=== PATIENT | female | born 1945 | race Caucasian/White ===

== ENCOUNTER 2018-02-03 08:53 | Day surgery (SDC) | payer MEDICARE ==
[2018-02-02 12:33] LABS: BASOPHILS % (AUTO) 0.4 % (0-1); EOSINOPHILS # (AUTO) 0.1 X10'3 (0-0.9); EOSINOPHILS % (AUTO) 1.4 % (0-6); LYMPHOCYTES % (AUTO) 24.6 % (21-51); MEAN CORPUSCULAR HEMOGLOBIN 32.4 PG (27.0-31.0); MEAN CORPUSCULAR HGB CONC 34.2 % (33.0-36.5); MEAN CORPUSCULAR VOLUME 94.8 FL (78-98); MEAN PLATELET VOLUME 9.7 FL (7.4-10.4); MONOCYTES # (AUTO) 0.6 X10'3 (0-0.9); MONOCYTES % (AUTO) 6.9 % (2-12); NEUTROPHILS # (AUTO) 5.4 X10'3 (1.8-7.7); NEUTROPHILS % (AUTO) 66.7 % (42-75); PLATELET COUNT 156 X10'3 (140-440); RED BLOOD COUNT 4.32 X10'6 (4.20-5.60); RED CELL DISTRIBUTION WIDTH 13.6 % (11.5-14.5); WHITE BLOOD COUNT 8.1 X10'3 (4.5-11.0)
[2018-02-02 12:43] LABS: PARTIAL THROMBOPLASTIN TIME 25 SECONDS (22-32)
[2018-02-02 12:44] LABS: ALBUMIN 3.9 G/DL (3.4-5.0); ANION GAP 11 (8-16); BLOOD UREA NITROGEN 20 MG/DL (7-18); BUN/CREATININE RATIO 23.5 (6.6-38.0); CALCIUM 9.3 MG/DL (8.5-10.1); CHLORIDE 104 MMOL/L (99-107); CREATININE 0.85 MG/DL (0.40-0.90); GLUCOSE 106 MG/DL (70-104); SODIUM 140 MMOL/L (135-145); TOTAL CARBON DIOXIDE 25.2 MMOL/L (24-32); eGFR 66 ML/MIN
[2018-02-03] VITALS (12 sets, daily range): BP systolic 92–148; BP diastolic 55–87
[~2018-02-03] VITALS: Ht 157.5 cm; Wt 61.7 kg
[2018-02-03] MEDS ORDERED: normal saline 1000ml 1,000 ML IV SCH (09:25)
[2018-02-03] MEDS ORDERED: diphenhydrAMINE 25mg capsule PO PRN (09:25)
[2018-02-03] MEDS ORDERED: LORazepam 0.5 MG tablet PO PRN (09:25)
[2018-02-03] MEDS ORDERED: METO25TA6 PO (09:47)
[2018-02-03] MEDS ORDERED: AMLO2.5T2 PO (09:47)
[2018-02-03] MEDS ORDERED: METO50TA17 PO (09:47)
[2018-02-03] MEDS ORDERED: FLAX10007 PO (09:47)
[2018-02-03] MEDS ORDERED: LISI-600 PO (09:47)
[2018-02-03] MEDS ORDERED: MAGN500C16 PO (09:47)
[2018-02-03] MEDS ORDERED: LIDOcaine/PRILOcaine 5gm cream TP ONE ×2 (11:55→11:59)
[2018-02-03] MEDS ORDERED: heparin 1,000unit/ml 10ml vial 10 ML ONE (12:09)
[2018-02-03] MEDS ORDERED: iohexol 350 MG/ML 50ML vial IV ONE (12:09)
[2018-02-03] MEDS ORDERED: midazolam 2 mg/2 ml injection ONE (12:09)
[2018-02-03] MEDS ORDERED: nitroGLYCERIN-Tridil 50MG/D5W 250 ML IV ONE (12:09)
[2018-02-03] MEDS ORDERED: verapamil 2.5 mg/ml inj IV ONE (12:09)
[2018-02-03] MEDS ORDERED: iohexol 350MG/ML 100ml bottle IV ONE (12:09)
[2018-02-03] MEDS ORDERED: LIDOcaine 1% 30ml preserv. free vial ONE (12:09)
[2018-02-03] MEDS ORDERED: fentaNYL/PF 50MCG/1 ML 2ML syringe ONE (12:09)
[2018-02-03] MEDS ORDERED: atropine 0.1mg/ml 10ml syringe ONE (13:19)
[2018-02-03] MEDS ORDERED: ibuprofen tablet 400 MG TABLET PO ONE (16:20)
[2018-02-03 17:41] LABS: ISTAT HGB ART 11.6 g/dl (12.0-16.0); ISTAT Hct ART 34 %PCV (35-48); ISTAT O2 SATURATION ARTERIAL 94 % (95-98); ISTAT SOURCE ART
[2018-02-04 05:16] LABS: ISTAT Hct MIX 34 %PCV (35-48); ISTAT O2 SATURATION MIX VENOUS 69 % (60-80); ISTAT SOURCE MIX
== END 2018-02-03 19:30 | disposition home or self-care (01) ==
LOC: SSTAY O 08:53
PROVIDERS: ATTEND Internal Medicine Cardiovascular Disease
DX: I25.118 Atherosclerotic heart disease of native coronary artery with other forms of angina pectoris (principal); I35.0 Nonrheumatic aortic (valve) stenosis; I47.1 Supraventricular tachycardia; I10 Essential (primary) hypertension; M81.0 Age-related osteoporosis without current pathological fracture; I34.1 Nonrheumatic mitral (valve) prolapse; I48.91 Unspecified atrial fibrillation; Z87.891 Personal history of nicotine dependence; Z95.5 Presence of coronary angioplasty implant and graft; Z72.89 Other problems related to lifestyle; Z90.710 Acquired absence of both cervix and uterus; Z95.1 Presence of aortocoronary bypass graft; Z79.01 Long term (current) use of anticoagulants; Z79.82 Long term (current) use of aspirin; Z90.49 Acquired absence of other specified parts of digestive tract; Z90.89 Acquired absence of other organs; Z79.899 Other long term (current) drug therapy; Z98.890 Other specified postprocedural states; Z82.49 Family history of ischemic heart disease and other diseases of the circulatory system; Z84.1 Family history of disorders of kidney and ureter; Z83.3 Family history of diabetes mellitus
CPT/HCPCS: 36415; 80048; 82803; 85014; 85025; 85610; 85730; 93005; 93460; 93567; 99152; 99153; A6257; A6258; A6402; A6449; C1769; J1644; J2250; J3010; J3490; J7030; Q0163; Q9967; A4620; J0461

== ENCOUNTER 2019-04-14 13:29 | Emergency (ER) | payer MEDICARE ==
[~2019-04-14] VITALS: Ht 157.5 cm; Wt 62.3 kg
[~2019-04-14 13:29] MED LIST: AMLO2.5T2 PO; FLAX10007 PO; LISI-600 PO; MAGN500C16 PO; METO25TA6 PO; METO50TA17 PO
[2019-04-14 14:46] VITALS: BP 156/82
== END 2019-04-14 15:44 | disposition home or self-care (01) ==
LOC: ER 13:30
DX: I10 Essential (primary) hypertension (principal); Z79.899 Other long term (current) drug therapy; Z98.890 Other specified postprocedural states
CPT/HCPCS: 93005; 99283

== ENCOUNTER 2021-06-07 23:18 | Emergency (ER) | payer MEDICARE ==
[~2021-06-07] VITALS: Ht 165.1 cm; Wt 70.5 kg
[~2021-06-07 23:18] MED LIST changes: +AMIO200T67 PO; -AMLO2.5T2 PO; +APIX5TAB3 PO; +CHOL100025 PO; +LEVO25TA7 PO; -LISI-600 PO; -METO25TA6 PO; -METO50TA17 PO; +ZINC50TA60 PO
[2021-06-07 23:49] VITALS: BP 200/83
[2021-06-08 00:05] LABS: BASOPHILS % (AUTO) 0.6 % (0-1); EOSINOPHILS # (AUTO) 0.2 X10'3 (0-0.9); EOSINOPHILS % (AUTO) 2.1 % (0-6); HEMATOCRIT 41.2 % (35.0-45.0); HEMOGLOBIN 14.3 g/dl (12.0-16.0); LYMPHOCYTES # (AUTO) 2.8 X10'3 (1.1-4.8); LYMPHOCYTES % (AUTO) 35.1 % (21-51); MEAN CORPUSCULAR HEMOGLOBIN 31.8 PG (27.0-31.0); MEAN CORPUSCULAR HGB CONC 34.7 g/dL (33.0-36.5); MEAN CORPUSCULAR VOLUME 91.6 FL (78-98); MEAN PLATELET VOLUME 9.4 FL (7.4-10.4); MONOCYTES # (AUTO) 0.8 X10'3 (0-0.9); MONOCYTES % (AUTO) 9.6 % (2-12); NEUTROPHILS # (AUTO) 4.1 X10'3 (1.8-7.7); NEUTROPHILS % (AUTO) 52.6 % (42-75); PLATELET COUNT 197 X10'3 (140-440); RED CELL DISTRIBUTION WIDTH 12.9 % (11.5-14.5); WHITE BLOOD COUNT 7.9 X10'3 (4.5-11.0)
[2021-06-08 00:18] LABS: ALANINE AMINOTRANSFERASE 37 U/L (12-78); ALBUMIN 4.1 G/DL (3.4-5.0); ALBUMIN/GLOBULIN RATIO 1.1 (1.1-1.5); ALKALINE PHOSPHATASE 101 IU/L (46-116); ANION GAP 13 (8-16); ASPARTATE AMINO TRANSFERASE 23 U/L (10-37); BILIRUBIN,TOTAL 0.5 MG/DL (0.1-1.0); BLOOD UREA NITROGEN 21 MG/DL (7-18); BUN/CREATININE RATIO 22.6 (6.6-38.0); CALCIUM 9.7 MG/DL (8.5-10.1); CHLORIDE 106 MMOL/L (99-107); CREATININE 0.93 MG/DL (0.40-0.90); GLUCOSE 100 MG/DL (70-104); POTASSIUM 3.7 MMOL/L (3.5-5.1); SODIUM 143 MMOL/L (135-145); TOTAL CARBON DIOXIDE 23.9 MMOL/L (24-32); TOTAL PROTEIN 7.9 G/DL (6.4-8.2); eGFR 59 ML/MIN
[2021-06-08] MEDS ORDERED: cloNIDine 0.1 mg tablet PO ONE (01:10)
== END 2021-06-08 02:39 | disposition home or self-care (01) ==
LOC: ER 23:20
DX: R00.2 Palpitations (principal); I48.91 Unspecified atrial fibrillation; I10 Essential (primary) hypertension; Z98.890 Other specified postprocedural states; Z60.2 Problems related to living alone; Z79.899 Other long term (current) drug therapy
CPT/HCPCS: 36415; 71045; 80053; 83880; 84484; 85025; 93005; 99285

== ENCOUNTER 2021-08-28 15:42 | Outpatient (CLI) | payer MEDICARE ==
[~2021-08-28 15:42] MED LIST changes: -MAGN500C16 PO; +MAGN500C4 PO
[2021-08-28 16:11] LABS: TOTAL HEMOGLOBIN 14.3 G/dl (12.0-16.0)
== END 2021-08-28 23:59 | disposition home or self-care (01) ==
LOC: RT 15:42
PROVIDERS: ATTEND Internal Medicine Cardiovascular Disease
DX: R94.2 Abnormal results of pulmonary function studies (principal); Z79.899 Other long term (current) drug therapy
CPT/HCPCS: 85018; 94010; 94727; 94729

== ENCOUNTER 2022-11-23 05:53 | Emergency (ER) | payer MEDICARE ==
[~2022-11-23] VITALS: Ht 157.5 cm; Wt 65.9 kg
[2022-11-23] MEDS ORDERED: normal saline 1000ml 1,000 ML IV ONE (07:25)
[2022-11-23 07:29] LABS: BASOPHILS % (AUTO) 0.5 % (0-1); EOSINOPHILS # (AUTO) 0.1 X10'3 (0-0.9); EOSINOPHILS % (AUTO) 1.8 % (0-6); HEMATOCRIT 43.6 % (35.0-45.0); HEMOGLOBIN 14.6 g/dl (12.0-16.0); LYMPHOCYTES # (AUTO) 1.7 X10'3 (1.1-4.8); LYMPHOCYTES % (AUTO) 26.5 % (21-51); MEAN CORPUSCULAR HEMOGLOBIN 31.3 PG (27.0-31.0); MEAN CORPUSCULAR HGB CONC 33.5 g/dL (33.0-36.5); MEAN CORPUSCULAR VOLUME 93.2 FL (78-98); MEAN PLATELET VOLUME 9.3 FL (7.4-10.4); MONOCYTES # (AUTO) 0.5 X10'3 (0-0.9); NEUTROPHILS # (AUTO) 4.1 X10'3 (1.8-7.7); NEUTROPHILS % (AUTO) 63.2 % (42-75); PLATELET COUNT 166 X10'3 (140-440); RED BLOOD COUNT 4.68 X10'6 (4.20-5.60); RED CELL DISTRIBUTION WIDTH 13.3 % (11.5-14.5); WHITE BLOOD COUNT 6.4 X10'3 (4.5-11.0)
[2022-11-23 07:47] LABS: ALANINE AMINOTRANSFERASE 29 U/L (12-78); ALBUMIN 3.9 G/DL (3.4-5.0); ALBUMIN/GLOBULIN RATIO 1.1 (1.1-1.5); ALKALINE PHOSPHATASE 72 IU/L (46-116); ANION GAP 14 (8-16); ASPARTATE AMINO TRANSFERASE 24 U/L (10-37); BILIRUBIN,TOTAL 0.5 MG/DL (0.1-1.0); BLOOD UREA NITROGEN 21 MG/DL (7-18); BUN/CREATININE RATIO 18.6 (10.0-20.0); CALCIUM 9.1 MG/DL (8.5-10.1); CHLORIDE 106 MMOL/L (99-107); CREATININE 1.13 MG/DL (0.40-0.90); GLUCOSE 103 MG/DL (70-104); POTASSIUM 3.9 MMOL/L (3.5-5.1); SODIUM 145 MMOL/L (135-145); TOTAL CARBON DIOXIDE 25.2 MMOL/L (24-32); TOTAL PROTEIN 7.3 G/DL (6.4-8.2); eGFR 47 ML/MIN
[2022-11-23 07:56] LABS: MAGNESIUM 2.1 MG/DL (1.5-2.4)
[2022-11-23 08:22] VITALS: BP 168/86
== END 2022-11-23 09:06 | disposition home or self-care (01) ==
LOC: ER 05:53
DX: I48.91 Unspecified atrial fibrillation (principal); I10 Essential (primary) hypertension
CPT/HCPCS: 36415; 71045; 80053; 83735; 83880; 84484; 85025; 93005; 96360; 99285; J7030

== ENCOUNTER 2023-01-06 05:57 | Day surgery (SDC) | payer MEDICARE ==
[2023-01-05 13:28] LABS: BASOPHILS # (AUTO) 0.1 X10'3 (0-0.2); BASOPHILS % (AUTO) 0.8 % (0-1); EOSINOPHILS # (AUTO) 0.1 X10'3 (0-0.9); EOSINOPHILS % (AUTO) 0.9 % (0-6); HEMATOCRIT 41.6 % (35.0-45.0); LYMPHOCYTES # (AUTO) 1.9 X10'3 (1.1-4.8); LYMPHOCYTES % (AUTO) 23.1 % (21-51); MEAN CORPUSCULAR HEMOGLOBIN 31.3 PG (27.0-31.0); MEAN CORPUSCULAR HGB CONC 33.6 g/dL (33.0-36.5); MEAN CORPUSCULAR VOLUME 93.2 FL (78-98); MEAN PLATELET VOLUME 9.2 FL (7.4-10.4); MONOCYTES # (AUTO) 0.6 X10'3 (0-0.9); MONOCYTES % (AUTO) 6.8 % (2-12); NEUTROPHILS # (AUTO) 5.6 X10'3 (1.8-7.7); NEUTROPHILS % (AUTO) 68.4 % (42-75); PLATELET COUNT 171 X10'3 (140-440); RED BLOOD COUNT 4.46 X10'6 (4.20-5.60); RED CELL DISTRIBUTION WIDTH 13.2 % (11.5-14.5); WHITE BLOOD COUNT 8.2 X10'3 (4.5-11.0)
[2023-01-05 13:35] LABS: ALBUMIN 3.8 G/DL (3.4-5.0); ANION GAP 11 (8-16); BLOOD UREA NITROGEN 18 MG/DL (7-18); BUN/CREATININE RATIO 16.7 (10.0-20.0); CALCIUM 9.2 MG/DL (8.5-10.1); CHLORIDE 103 MMOL/L (99-107); CREATININE 1.08 MG/DL (0.40-0.90); GLUCOSE 133 MG/DL (70-104); POTASSIUM 3.7 MMOL/L (3.5-5.1); SODIUM 138 MMOL/L (135-145); TOTAL CARBON DIOXIDE 23.8 MMOL/L (24-32); eGFR 49 ML/MIN
[~2023-01-06] VITALS: Ht 157.5 cm; Wt 65.9 kg
[2023-01-06] VITALS (15 sets, daily range): BP systolic 80–186; BP diastolic 37–94; PULSE 56–62; RESP 14–16; TEMP 98.4; O2SAT 94–97
[~2023-01-06 05:57] MED LIST changes: +normal saline 1000ml 1,000 ML IV SCH
[2023-01-06] MEDS ORDERED: cefazolin 2gm/D5W 100mL 100 ML IV ONE (06:23)
[2023-01-06] MEDS ORDERED: AMI200T PO (06:45)
[2023-01-06] MEDS ORDERED: LEVO75TA7 PO (06:48)
[2023-01-06] MEDS ORDERED: LISI20TA28 PO (06:49)
[2023-01-06] MEDS ORDERED: HYDR-4069 PO (06:50)
[2023-01-06] MEDS ORDERED: APIX5TAB3 PO (06:52)
[2023-01-06] MEDS ORDERED: METO-539 PO (06:53)
[2023-01-06] MEDS ORDERED: MAGN250T11 PO (07:05)
[2023-01-06] MEDS ORDERED: CHOL400T32 PO (07:05)
[2023-01-06] MEDS ORDERED: Vitamin B12 SL (07:05)
[2023-01-06] MEDS ORDERED: LIDOcaine 1% W/epiNEPHrine 1:100,000 20ml vial ONE (07:24)
[2023-01-06] MEDS ORDERED: midazolam 1 mg/ML 2ml injection ONE ×2 (07:24→08:32)
[2023-01-06] MEDS ORDERED: ceFAZolin 1000mg inj ONE (07:24)
[2023-01-06] MEDS ORDERED: fentaNYL/PF 50MCG/1 ML 2ML syringe ONE (07:24)
[2023-01-06 08:20] LABS: APTT 24 SECONDS (22-32); PROTHROMBIN TIME 10.3 SECONDS (9.0-12.0)
[2023-01-06] MEDS ORDERED: diphenhydrAMINE 50 mg/ml inj ONE (08:37)
[2023-01-06] MEDS ORDERED: morphine 2 MG/ML inj. syringe ONE (09:45)
--- NOTE | 2023-01-06 10:10 | NUR ---
Dr. Hendrickson at bedside, orders received for 1000cc NS bolus, bedside CXR.
[2023-01-06] MEDS ORDERED: HYDROcodone/acetaminophen 5mg/325mg tablet PO PRN (10:25)
[2023-01-06] MEDS ORDERED: HYDROcodone/acetaminophen 10/325mg tab PO PRN (10:25)
[2023-01-06] MEDS ORDERED: vancomycin/NS 1 GM ADD-VANTAGE 250 ML X 1 DOSE IV ONE (11:00)
[2023-01-06] MEDS ORDERED: acetaminophen 325mg tablet PO PRN (12:10)
--- NOTE | 2023-01-06 14:00 | NUR ---
Dr. Hendrickson called re: CXR . Orders received to have repeat CXR tomorrow. Pt denies CP or discomfort and VSS.
== END 2023-01-06 16:00 | disposition home or self-care (01) ==
LOC: SSTAY O 05:57
PROVIDERS: ATTEND Internal Medicine Cardiovascular Disease
DX: I49.5 Sick sinus syndrome (principal); I10 Essential (primary) hypertension; M81.0 Age-related osteoporosis without current pathological fracture; E78.5 Hyperlipidemia, unspecified; I47.1 Supraventricular tachycardia; I08.1 Rheumatic disorders of both mitral and tricuspid valves; I48.0 Paroxysmal atrial fibrillation; Z95.2 Presence of prosthetic heart valve; Z79.899 Other long term (current) drug therapy; Z98.890 Other specified postprocedural states; Z90.49 Acquired absence of other specified parts of digestive tract; Z79.01 Long term (current) use of anticoagulants; Z87.891 Personal history of nicotine dependence; Z82.49 Family history of ischemic heart disease and other diseases of the circulatory system; Z83.3 Family history of diabetes mellitus
CPT/HCPCS: 33208; 36415; 71045; 80048; 85025; 85610; 85730; 93005; 93306; 99152; 99153; C1785; C1898; J0690; J1200; J2250; J2270; J3010; J3370; J3490; J7030; A4565; A4615; A6258; A6449

== ENCOUNTER 2024-09-01 10:24 | Inpatient (IN) | payer MEDICARE ==
[~2024-09-01] VITALS: Ht 160 cm; Wt 66.9 kg
[~2024-09-01 10:24] MED LIST changes: +AMI200T PO; -AMIO200T67 PO; -CHOL100025 PO; +CHOL400T32 PO; +HYDR25TA90 PO; -LEVO25TA7 PO; +LEVO75TA7 PO; +LISI20TA28 PO; +MAGN250T11 PO; -MAGN500C4 PO; +METO-539 PO; +Vitamin B12 SL; -normal saline 1000ml 1,000 ML IV SCH
[2024-09-01 10:49] LABS: BASOPHILS % (AUTO) 0.4 % (0-1); EOSINOPHILS % (AUTO) 0 % (0-6); HEMATOCRIT 38.6 % (35.0-45.0); HEMOGLOBIN 13.3 g/dl (12.0-16.0); LYMPHOCYTES # (AUTO) 1.8 X10'3 (1.1-4.8); LYMPHOCYTES % (AUTO) 16.2 % (21-51); MEAN CORPUSCULAR HEMOGLOBIN 31.4 PG (27.0-31.0); MEAN CORPUSCULAR HGB CONC 34.5 g/dL (33.0-36.5); MEAN CORPUSCULAR VOLUME 91.2 FL (78-98); MEAN PLATELET VOLUME 9.1 FL (7.4-10.4); MONOCYTES # (AUTO) 0.5 X10'3 (0-0.9); MONOCYTES % (AUTO) 4.8 % (2-12); NEUTROPHILS # (AUTO) 8.6 X10'3 (1.8-7.7); NEUTROPHILS % (AUTO) 78.6 % (42-75); PLATELET COUNT 159 X10'3 (140-440); RED BLOOD COUNT 4.23 X10'6 (4.20-5.60); RED CELL DISTRIBUTION WIDTH 12.9 % (11.5-14.5)
[2024-09-01 10:58] LABS: ALBUMIN 3.7 G/DL (3.4-5.0); ANION GAP 9 (8-16); BLOOD UREA NITROGEN 18 MG/DL (7-18); BUN/CREATININE RATIO 18.9 (10.0-20.0); CALCIUM 8.9 MG/DL (8.5-10.1); CHLORIDE 103 MMOL/L (99-107); CREATININE 0.95 MG/DL (0.40-0.90); GLUCOSE 111 MG/DL (70-104); POTASSIUM 4.1 MMOL/L (3.5-5.1); SODIUM 136 MMOL/L (135-145); TOTAL CARBON DIOXIDE 24.4 MMOL/L (24-32); eCRCL 40 ML/MIN; eGFR 57 ML/MIN
[2024-09-01 11:02] LABS: APTT 30 SECONDS (22-32); INR 1.2 INR; PROTHROMBIN TIME 11.8 SECONDS (9.0-12.0)
[2024-09-01] MEDS ORDERED: potassium Cl 40MEQ/1/2NS 520ml 520 ML IV PRN (12:35)
[2024-09-01] MEDS ORDERED: ondansetron/PF 4mg/2ml inj IV PRN (12:35)
[2024-09-01] MEDS ORDERED: magnesium Cl slow-release 64mg tablet PO PRN (12:35)
[2024-09-01] MEDS ORDERED: magnesium sulf-water 2g/50mL 50 ML IV PRN (12:35)
[2024-09-01] MEDS ORDERED: magnesium hydroxide 30ml (MOM) UD suspension PO PRN (12:35)
[2024-09-01] MEDS ORDERED: potassium Cl 20 mEq SR tablet PO PRN ×2 (12:35)
[2024-09-01] MEDS ORDERED: magnesium sulf-water 4G/100mL 100 ML IV PRN (12:35)
[2024-09-01] MEDS ORDERED: acetaminophen 325mg tablet PO PRN (12:35)
[2024-09-01] MEDS ORDERED: mag hydrox/Alum hydrox/simeth 30ml oral suspension PO PRN (12:35)
[2024-09-01 13:00] LABS: BILIRUBIN,URINE NEGATIVE (Neg); CLARITY,URINE CLEAR (Clear); COLOR,URINE YELLOW (Yellow); GLUCOSE, URINE NEGATIVE (Neg); KETONES,URINE NEGATIVE (Neg); LEUKOCYTE ESTERASE ,URINE NEGATIVE (Neg); NITRITES, URINE NEGATIVE (Neg); OCCULT BLOOD,URINE NEGATIVE (Neg); PROTEIN,URINE NEGATIVE (Neg); UROBILINOGEN,URINE 0.2 E.U/dL (0.2-1.0)
[2024-09-01 13:03] LABS: UA COLLECTION TYPE CLN CATCH MIDSTREAM
[2024-09-01 13:36] LABS: HEMOGLOBIN A1C 5.4 % (4.5-6.2)
[2024-09-01] MEDS ORDERED: DRON400T6 PO (15:09)
[2024-09-01 16:11] VITALS: BP 183/73; PULSE 64; RESP 16; TEMP 97.7; O2SAT 99
[2024-09-01 16:15] VITALS: RESP 16; O2SAT 99
[2024-09-01 18:00] VITALS: BP 186/64; PULSE 64; RESP 18; TEMP 97.9; O2SAT 98
[2024-09-01] MEDS ORDERED: iohexol 350MG/ML 100ml bottle IV ONE (19:11)
[2024-09-01] MEDS: K and/or MAG REPLACEMENT MC SCH (20:00)
[2024-09-01] MEDS ORDERED: DRONEDARONE HCL 400 MG PO SCH (20:00)
[2024-09-01] MEDS: apixaban 5mg tablet PO SCH (20:30)
[2024-09-01] MEDS: docusate sod 100mg capsule PO SCH (20:30)
[2024-09-01] MEDS: atorvastatin 20mg tablet PO SCH (20:32)
[2024-09-01] MEDS: normal saline 1000ml 1,000 ML IV SCH (20:53)
[2024-09-01] MEDS: DRONEDARONE HCL 400 MG PO ONE (21:10)
[2024-09-01 22:00] VITALS: BP 159/76; PULSE 66; RESP 16; TEMP 98.2; O2SAT 97
[2024-09-02] VITALS (7 sets, daily range): BP systolic 109–181; BP diastolic 44–84; PULSE 66–85; RESP 14–20; TEMP 97.4–98.9; O2SAT 94–99
[2024-09-02 06:53] LABS: BASOPHILS % (AUTO) 0.6 % (0-1); EOSINOPHILS % (AUTO) 0.3 % (0-6); HEMATOCRIT 35.8 % (35.0-45.0); HEMOGLOBIN 12.4 g/dl (12.0-16.0); LYMPHOCYTES # (AUTO) 1.7 X10'3 (1.1-4.8); LYMPHOCYTES % (AUTO) 21.6 % (21-51); MEAN CORPUSCULAR HEMOGLOBIN 31.5 PG (27.0-31.0); MEAN CORPUSCULAR HGB CONC 34.6 g/dL (33.0-36.5); MEAN CORPUSCULAR VOLUME 90.9 FL (78-98); MEAN PLATELET VOLUME 9.5 FL (7.4-10.4); MONOCYTES # (AUTO) 0.5 X10'3 (0-0.9); MONOCYTES % (AUTO) 6.8 % (2-12); NEUTROPHILS # (AUTO) 5.5 X10'3 (1.8-7.7); NEUTROPHILS % (AUTO) 70.7 % (42-75); PLATELET COUNT 143 X10'3 (140-440); RED BLOOD COUNT 3.94 X10'6 (4.20-5.60); WHITE BLOOD COUNT 7.7 X10'3 (4.5-11.0)
[2024-09-02 07:24] LABS: ALANINE AMINOTRANSFERASE 19 U/L (12-78); ALBUMIN 3.1 G/DL (3.4-5.0); ALBUMIN/GLOBULIN RATIO 1.1 (1.1-1.5); ALKALINE PHOSPHATASE 57 IU/L (46-116); ANION GAP 8 (8-16); ASPARTATE AMINO TRANSFERASE 14 U/L (10-37); BILIRUBIN,TOTAL 0.7 MG/DL (0.1-1.0); BLOOD UREA NITROGEN 21 MG/DL (7-18); BUN/CREATININE RATIO 23.3 (10.0-20.0); CALCIUM 8.3 MG/DL (8.5-10.1); CHLORIDE 109 MMOL/L (99-107); GLUCOSE 107 MG/DL (70-104); MAGNESIUM 1.9 MG/DL (1.5-2.4); POTASSIUM 3.9 MMOL/L (3.5-5.1); SODIUM 141 MMOL/L (135-145); THYROID STIMULATING HORMONE 0.36 ulU/ml (0.34-4.50); TOTAL CARBON DIOXIDE 24.4 MMOL/L (24-32); TOTAL PROTEIN 5.8 G/DL (6.4-8.2); eCRCL 43 ML/MIN; eGFR 61 ML/MIN
[2024-09-02 08:09] LABS: CHOL/HDL RATIO 2.4 (0.00-4.99); CHOLESTEROL 139 MG/DL (0-200); HDL CHOLESTEROL 58 MG/DL (35-60); LDL CHOLESTEROL 69 MG/DL (50-100); TRIGLYCERIDES 63 MG/DL (20-135)
[2024-09-02] MEDS: DRONEDARONE HCL 400 MG PO SCH (08:34)
[2024-09-02] MEDS: metoprolol succinate 25mg (24-HOUR) SR. Tablet PO SCH (08:34)
[2024-09-02] MEDS: levoTHYROXINE 75mcg tablet PO SCH (08:35)
[2024-09-03 02:50] VITALS: BP 151/76; PULSE 68; RESP 14; TEMP 97.6; O2SAT 98
[2024-09-03 06:00] VITALS: BP 129/57; PULSE 63; RESP 16; TEMP 97.9; O2SAT 94
[2024-09-03 06:44] LABS: BASOPHILS # (AUTO) 0.1 X10'3 (0-0.2); BASOPHILS % (AUTO) 0.6 % (0-1); EOSINOPHILS # (AUTO) 0.1 X10'3 (0-0.9); EOSINOPHILS % (AUTO) 1.1 % (0-6); HEMATOCRIT 39.5 % (35.0-45.0); HEMOGLOBIN 13.7 g/dl (12.0-16.0); LYMPHOCYTES # (AUTO) 2.7 X10'3 (1.1-4.8); LYMPHOCYTES % (AUTO) 28.8 % (21-51); MEAN CORPUSCULAR HEMOGLOBIN 31.8 PG (27.0-31.0); MEAN CORPUSCULAR HGB CONC 34.7 g/dL (33.0-36.5); MEAN CORPUSCULAR VOLUME 91.5 FL (78-98); MEAN PLATELET VOLUME 9.9 FL (7.4-10.4); MONOCYTES # (AUTO) 0.7 X10'3 (0-0.9); MONOCYTES % (AUTO) 7.8 % (2-12); NEUTROPHILS # (AUTO) 5.9 X10'3 (1.8-7.7); NEUTROPHILS % (AUTO) 61.7 % (42-75); PLATELET COUNT 155 X10'3 (140-440); RED BLOOD COUNT 4.32 X10'6 (4.20-5.60); RED CELL DISTRIBUTION WIDTH 13.6 % (11.5-14.5); WHITE BLOOD COUNT 9.5 X10'3 (4.5-11.0)
[2024-09-03 07:08] LABS: ALANINE AMINOTRANSFERASE 18 U/L (12-78); ALBUMIN 3.3 G/DL (3.4-5.0); ALBUMIN/GLOBULIN RATIO 1.1 (1.1-1.5); ALKALINE PHOSPHATASE 62 IU/L (46-116); ANION GAP 7 (8-16); ASPARTATE AMINO TRANSFERASE 19 U/L (10-37); BILIRUBIN,TOTAL 0.5 MG/DL (0.1-1.0); BLOOD UREA NITROGEN 21 MG/DL (7-18); BUN/CREATININE RATIO 19.4 (10.0-20.0); CALCIUM 8.8 MG/DL (8.5-10.1); CHLORIDE 110 MMOL/L (99-107); CREATININE 1.08 MG/DL (0.40-0.90); GLUCOSE 110 MG/DL (70-104); MAGNESIUM 2.1 MG/DL (1.5-2.4); POTASSIUM 4.1 MMOL/L (3.5-5.1); SODIUM 141 MMOL/L (135-145); TOTAL PROTEIN 6.4 G/DL (6.4-8.2); eCRCL 36 ML/MIN; eGFR 49 ML/MIN
[2024-09-03] MEDS: atorvastatin 20mg tablet PO SCH (07:25)
[2024-09-03] MEDS: metoprolol tartrate 12.5mg (1/2 tablet) PO SCH (07:25)
[2024-09-03 08:20] VITALS: BP 189/87; PULSE 65; RESP 16; O2SAT 96
[2024-09-03 10:10] VITALS: BP 145/61; PULSE 63
[2024-09-03] MEDS: lisinopril 20mg tablet PO SCH (10:13)
[2024-09-03] MEDS ORDERED: ATOR20TA66 PO (10:23)
[2024-09-03] MEDS ORDERED: LOP12.5T PO (10:26)
[2024-09-03 11:20] VITALS: BP 170/84; PULSE 63
[2024-09-03] MEDS: hydrALAZINE 25 MG tablet PO ONE (11:20)
== END 2024-09-03 12:05 | disposition home or self-care (01) | DRG 69 ==
LOC: ER 10:25 → ED HOLD 12:35 → ORTHO 4S 16:00
PROVIDERS: ADMIT Family Medicine; ATTEND Family Medicine
PROC: B3251ZZ Computerized Tomography (CT Scan) of Bilateral Common Carotid Arteries using Low Osmolar Contrast (ICD-10-PCS; 2024-09-01)
PROC: B32G1ZZ Computerized Tomography (CT Scan) of Bilateral Vertebral Arteries using Low Osmolar Contrast (ICD-10-PCS; 2024-09-01)
PROC: B32R1ZZ Computerized Tomography (CT Scan) of Intracranial Arteries using Low Osmolar Contrast (ICD-10-PCS; 2024-09-01)
PROC: B3281ZZ Computerized Tomography (CT Scan) of Bilateral Internal Carotid Arteries using Low Osmolar Contrast (ICD-10-PCS; 2024-09-01)
PROC: 4A10X4Z Monitoring of Central Nervous Electrical Activity, External Approach (ICD-10-PCS; principal; 2024-09-02)
DX: G45.9 Transient cerebral ischemic attack, unspecified (principal); G45.4 Transient global amnesia; I10 Essential (primary) hypertension; E03.9 Hypothyroidism, unspecified; I48.91 Unspecified atrial fibrillation; Z79.01 Long term (current) use of anticoagulants; Z88.5 Allergy status to narcotic agent; Z79.899 Other long term (current) drug therapy; Z90.49 Acquired absence of other specified parts of digestive tract; Z95.0 Presence of cardiac pacemaker
CPT/HCPCS: 36415; 70450; 70496; 70498; 70551; 71045; 80048; 80053; 80061; 81003; 82948; 83036; 83735; 84443; 85025; 85610; 85730; 87081; 93005; 93306; 95816; 97110; 97116; 97162; 99291; A6258; G0378; J7030; Q9967